=== PATIENT | male | born 1945 | race Caucasian/White ===

== ENCOUNTER 2022-02-25 09:04 | Emergency (ER) | payer MEDICARE, SELFPAY ==
--- NOTE | ~2022-02-25 | XR_ITS ---
EXAMINATION: XR CHEST CLINICAL INFORMATION: Syncope COMPARISON: None TECHNIQUE: Frontal view of the chest was obtained. FINDINGS: Left basilar atelectasis. No pneumothorax. Trachea is midline. Cardiomediastinal silhouette is not enlarged. Dual-lead pacer terminating in the right atrium and ventricle. Atherosclerotic calcifications of the aorta. No large pleural effusion. Levocurvature of the mid lumbar spine. Soft tissues are unremarkable. XR/XR chest 1V IMPRESSION: Left basilar atelectasis.
[2022-02-25 09:16] VITALS: BP 104/62; BP 129/66; PULSE 65; PULSE 71; RESP 16; TEMP 36.7; O2SAT 100; O2SAT 98; BMI 34.4
--- NOTE | 2022-02-25 09:17 | ECG_ITS ---
Test Reason : syncope Blood Pressure : / mmHG Vent. Rate : 068 BPM Atrial Rate : 068 BPM P-R Int : 180 ms QRS Dur : 138 ms QT Int : 452 ms P-R-T Axes : 056 034 038 degrees QTc Int : 480 ms Normal sinus rhythm Right bundle branch block Abnormal ECG No previous ECGs available Referred By: Jhony Fonseca Electronically Signed By:DAVID PAK MD
--- NOTE | 2022-02-25 09:18 | ED_ITS ---
HPI - Syncope General Chief Complaint: Syncope Stated Complaint: SYNCOPAL EPISODE,GI BUG RECENTLY Time Seen by Provider: 02/25/22 09:15 Source: patient and EMS Mode of arrival: ambulatory Limitations: no limitations History of Present Illness HPI narrative: 68-year-old male presents emergency department he is visiting from [place] he states he drove to [place] initially stated that never falls he thinks he had s omething bad food and came here. Patient states that he has been having some abdominal cramping and some diarrhea states he had his 1st good male this morning he felt woozy states stepped away from the table when she came back that he was passed out. Patient denies history of syncope is history of hypertension hyperlipidemia asthma and history of multiple abdominal surgeries including bowel resection for diverticulitis and gallbladder removal. MD complaint: felt faint Related Data Allergies Allergy/AdvReac Type Severity Reaction Status Date / Time cephalexin Allergy Intermediate Rash Verified 02/25/22 09:17 Review of Systems Review of Systems: Review of systems: General: Patient denies any fever chills recent illness or falls Musculoskeletal: Denies back pain or body aches or other injuries HEENT: denies headache, runny nose, ear pain Respiratory: denies shortness of breath, cough Cardiovascular: no chest pain or palpitations : denies dysuria, frequency Abdomen: no nausea vomiting denies abdominal pain Extremities: no swelling, no pain Skin: no diaphoresis Yes all other systems are reviewed and are negative [facility] Past Medical History [facility] Narrative: Hypertension hyperlipidemia asthma COPD gallbladder removal diverticulitis with bowel resection Medical History (Updated 02/25/22 @ 09:21 by Jhony Fonseca DO) CAD (coronary artery disease) HTN (hypertension) Hyperlipidemia Surgical History (Updated 02/25/22 @ 09:19 by Savage Moncada) S/P TAVR (transcatheter aortic valve replacement) Physical Exam Vital Signs: Vital Signs: Last Vital Signs Temp 98.1 F 02/25/22 09:16 Pulse 71 02/25/22 09:16 Resp 16 02/25/22 09:16 BP 129/66 02/25/22 09:16 Pulse Ox 100 02/25/22 09:16 BMI result Body Mass Index 34.4 Neurological exam: CN II- XII tested. Patient is alert and oriented to person place and time. Patient has no dysphagia or dysarthia, denies good vision in all four vision [place] no nystagmus on exam, good strength to upper and lower extremities with normal reflexes to brachioradialis, wrist, patella and achilles. Negative romberg, good finger to nose and heel to dominguez. General: Well-appearing well-nourished in no signs of distress HEENT: Normocephalic atraumatic Neck: No signs of JVD, no masses no tenderness or lymphadenopathy Cardiovascular: Regular rate and rhythm Respiratory: Clear to auscultation bilaterally Abdomen: Soft nontender no masses Extremities: Normal pedal pulses no signs of edema Skin: Dry warm no rashes Back: No tenderness full ROM MDM - Syncope MDM Narrative Medical decision making narrative: Concern for syncope in a patient who has history of coronary disease he has no episodes of arrhythmias give patient a monitor with his age of 76 I have a low threshold to admit this patient for continued monitoring and syncope workup. Lab Data Result diagrams: 02/25/22 09:23 02/25/22 09:48 Labs: Lab Results 02/25/22 02/25/22 02/25/22 Range/Units 09:23 09:23 09:23 WBC 6.0 (4.8-10.8) X10*3/uL RBC 4.74 (4.60-5.80) X10*6/uL Hgb 14.7 (14.0-18.0) g/dl Hct 45.1 (42.0-52.0) % MCV 95.1 (80.0-98.0) fL MCH 31.0 (27.0-33.0) pg MCHC 32.6 (31.0-36.0) g/dl RDW 13.4 (11.0-16.0) % Plt Count 157 L (160-400) X10*3/uL MPV 10.3 (9.4-12.4) fL Immature Gran % (Auto) 0.7 H (0.0-0.4) % Neut % (Auto) 84.7 H (45-73) % Lymph % (Auto) 7.2 L (20-40) % [place] % (Auto) 6.0 (2-11) % Eos % (Auto) 1.2 (0-4) % Baso % (Auto) 0.2 (0-2) % Lymph # (Auto) 0.4 L (1.2-4.9) X10*3/uL Willacy # (Auto) 0.4 (0.1-1.2) X10*3/uL Eos # (Auto) 0.1 (0.0-0.4) X10*3/uL Baso # (Auto) 0.0 (0.0-0.2) X10*3/uL Abs Immat Gran (auto) 0.04 H (0.00-0.03) X10*3/uL Absolute Neuts (auto) 5.1 (2.0-8.3) x10*3/uL Absolute Nucleated RBC 0.000 (0.0-0.012) X10*3/uL Nucleated RBC % (auto) 0.0 (0.0-0.2) /100WBC Sodium (135-145) mmol/L Potassium (3.3-5.1) mmol/L Chloride (96-108) mmol/L Carbon Dioxide (22-29) mmol/L Anion Gap (12-20) BUN (9-16) mg/dL Creatinine (0.5-1.4) mg/dL Estim Creat Clear Calc Estimated GFR Random Glucose (60-115) mg/dL Calcium (8.4-10.2) mg/dL Total Bilirubin (0.0-1.0) mg/dL Direct Bilirubin (0.0-0.5) mg/dL AST (5-37) U/L ALT (0-40) U/L Alkaline Phosphatase (39-117) U/L Troponin I High Sens 14.4 (<3.5-35.0) ng/L Total Protein (6.5-8.0) g/dL Albumin (3.5-5.0) g/dL Lipase (8-78) U/L COVID-19 (LETICIA) Negative (Negative) COVID-19 Clin Com See Note 02/25/22 Range/Units 09:48 WBC (4.8-10.8) X10*3/uL RBC (4.60-5.80) X10*6/uL Hgb (14.0-18.0) g/dl Hct (42.0-52.0) % MCV (80.0-98.0) fL MCH (27.0-33.0) pg MCHC (31.0-36.0) g/dl RDW (11.0-16.0) % Plt Count (160-400) X10*3/uL MPV (9.4-12.4) fL Immature Gran % (Auto) (0.0-0.4) % Neut % (Auto) (45-73) % Lymph % (Auto) (20-40) % [place] % (Auto) (2-11) % Eos % (Auto) (0-4) % Baso % (Auto) (0-2) % Lymph # (Auto) (1.2-4.9) X10*3/uL [place] # (Auto) (0.1-1.2) X10*3/uL Eos # (Auto) (0.0-0.4) X10*3/uL Baso # (Auto) (0.0-0.2) X10*3/uL Abs Immat Gran (auto) (0.00-0.03) X10*3/uL Absolute Neuts (auto) (2.0-8.3) x10*3/uL Absolute Nucleated RBC (0.0-0.012) X10*3/uL Nucleated RBC % (auto) (0.0-0.2) /100WBC Sodium 140 (135-145) mmol/L Potassium 3.8 (3.3-5.1) mmol/L Chloride 111 H (96-108) mmol/L Carbon Dioxide 21 L (22-29) mmol/L Anion Gap 12 (12-20) BUN 29 H (9-16) mg/dL Creatinine 1.37 (0.5-1.4) mg/dL Estim Creat Clear Calc 54.9 Estimated GFR 50 Random Glucose 159 H (60-115) mg/dL Calcium 8.2 L (8.4-10.2) mg/dL Total Bilirubin 0.9 (0.0-1.0) mg/dL Direct Bilirubin 0.5 (0.0-0.5) mg/dL AST 24 (5-37) U/L ALT 24 (0-40) U/L Alkaline Phosphatase 64 (39-117) U/L Troponin I High Sens (<3.5-35.0) ng/L Total Protein 5.1 L (6.5-8.0) g/dL Albumin 3.3 L (3.5-5.0) g/dL Lipase 16 (8-78) U/L COVID-19 (LETICIA) (Negative) COVID-19 Clin Com ECG Data Attestation: I personally reviewed and interpreted this ECG as follows: ECG interpretation date: 02/25/22 ECG interpretation time: 09:35 Prior ECG tracings: not available for review Interpretation: Rate 68 normal sinus rhythm right bundle-branch block monitor if this is old or new patient has no signs of ischemia Discharge Plan Discharge Clinical Impression: Syncope Patient Disposition: Left Against Medical Advice Instructions: Syncope (DC) Additional Instructions: You are leaving against medical advice feet changed mind please do not hesitate to come back to emergency department your workup so far was negative we typically get much more testing monitoring overnight. Stand Alone Forms: Against Medical Advice
[2022-02-25 09:28] LABS: MANUAL DIFF FLAG NO
[2022-02-25] MEDS: 0.9 % Sodium Chloride 1,000 ML 999 ML IV (09:29)
[2022-02-25 09:39] LABS: Basophils Percent Auto 0.2 % (0-2); Eosinophils Absolute Auto 0.1 X10*3/uL (0.0-0.4); Eosinophils Percent Auto 1.2 % (0-4); Hematocrit 45.1 % (42.0-52.0); Hemoglobin 14.7 g/dl (14.0-18.0); Imm Gran Abs Auto 0.04 X10*3/uL (0.00-0.03); Imm Gran Pct Auto 0.7 % (0.0-0.4); Lymphocytes Absolute Auto 0.4 X10*3/uL (1.2-4.9); Lymphocytes Percent Auto 7.2 % (20-40); Mean Corpuscular HGB Conc 32.6 g/dl (31.0-36.0); Mean Corpuscular Volume 95.1 fL (80.0-98.0); Mean Platelet Volume 10.3 fL (9.4-12.4); Monocytes Absolute Auto 0.4 X10*3/uL (0.1-1.2); Neutrophils Absolute Auto 5.1 x10*3/uL (2.0-8.3); Neutrophils Percent Auto 84.7 % (45-73); Platelet Count 157 X10*3/uL (160-400); Red Blood Count 4.74 X10*6/uL (4.60-5.80); Red Cell Distribution Width 13.4 % (11.0-16.0)
[2022-02-25 09:49] LABS: COVID-19 Test Negative (Negative)
[2022-02-25 09:50] LABS: Troponin-I High Sensitivity 14.4 ng/L (<3.5-35.0)
[2022-02-25 10:21] LABS: Alanine Aminotransferase 24 U/L (0-40); Albumin Level 3.3 g/dL (3.5-5.0); Alkaline Phosphatase 64 U/L (39-117); Anion Gap 12 (12-20); Aspartate Amino Transferase 24 U/L (5-37); Bilirubin Direct 0.5 mg/dL (0.0-0.5); Bilirubin Total 0.9 mg/dL (0.0-1.0); Blood Urea Nitrogen 29 mg/dL (9-16); Calcium 8.2 mg/dL (8.4-10.2); Carbon Dioxide 21 mmol/L (22-29); Chloride 111 mmol/L (96-108); Creatinine Clr Calc Pharmacy 54.9; Estimated Glomerular Filt Rate 50; Glucose Random 159 mg/dL (60-115); Lipase 16 U/L (8-78); Potassium 3.8 mmol/L (3.3-5.1); Sodium 140 mmol/L (135-145); Total Protein 5.1 g/dL (6.5-8.0)
== END 2022-02-25 11:07 | disposition left against medical advice (07) ==
LOC: HO.ED 11:04
PROVIDERS: Emergency Provider Student in an Organized Health Care Education/Training Program
DX: R55 Syncope and collapse (principal); Z20.822 Contact with and (suspected) exposure to COVID-19; Z79.899 Other long term (current) drug therapy
CPT/HCPCS: 36415; 71045; 80048; 80076; 83690; 84484; 85025; 87635; 93005; 96360; 99283; 99284